=== PATIENT | male | born 1995 | race African-American/Black ===

== ENCOUNTER 2021-02-17 06:36 | Emergency (ER) | payer SELFPAY ==
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
--- NOTE | 2021-02-17 09:23 | CR ---
Indication: Injury and pain. Technique: Right hip 2 views. Comparison: None. Findings: Bones: Alignment is normal. No fractures or bone lesions. Joint spaces: Unremarkable. Soft tissues: Unremarkable. Impression: No sign of acute injury. Dictated by Max Weaver MD @ 02/17/2021 9:22:57 AM (Electronically Signed)
--- NOTE | 2021-02-17 09:29 | CR ---
INDICATION: Injury and pain. TECHNIQUE: Chest and right ribs 3 views. COMPARISON: None FINDINGS: Cardiovascular and mediastinum: Heart size and vasculature are normal in caliber and appearance. Mediastinum is within normal limits. Lungs and pleural spaces: Lungs are clear. No sign of infiltrate or mass. No sign of pleural effusion. No pneumothorax. Bones and soft tissues: Detailed oblique images of the right ribs demonstrate no fractures or bone lesions. IMPRESSION: Unremarkable chest and right ribs. Dictated by Max Weaver MD @ 02/17/2021 9:27:47 AM (Electronically Signed)
[2021-02-17] MEDS ORDERED: traMADol 50 MG Tab PO ONE (09:54)
== END 2021-02-17 10:19 | disposition home or self-care (01) ==
LOC: MW.ED 06:36
DX: S22.31XA Fracture of one rib, right side, initial encounter for closed fracture (principal); J45.909 Unspecified asthma, uncomplicated; Z72.0 Tobacco use; V86.96XA Unspecified occupant of dirt bike or motor/cross bike injured in nontraffic accident, initial encounter
CPT/HCPCS: 71101; 73502; 99283; A9270